=== PATIENT | male | born 1990 | race Caucasian/White ===

== ENCOUNTER 2018-12-02 20:48 | Observation (INO) | payer MEDICAID, SELFPAY ==
[2018-12-02 20:50] VITALS: BP 133/73; PULSE 74; RESP 12; TEMP 36.8; O2SAT 98; BMI 23.3
[2018-12-02 21:18] VITALS: BP 116/75; PULSE 76; RESP 16; O2SAT 98
[2018-12-02 22:45] LABS: Absolute Lymphocyte Count 3.18 X10^3/ul (0.83-4.51); Absolute Neutrophil Count 5.4 X10^3/uL (2.0-7.7); Basophil# 0.02 X10^3/uL; Basophil% 0.2 % (0-1); Eosinophil# 0.07 X10^3/uL; Eosinophils% 0.7 % (0-5); Hemoglobin 12.2 g/dl (13.0-16.5); Lymphocyte # 3.18 X10^3/ul (4.0); Lymphocyte % 33.4 % (19-41); Mean Corp Hgb Conc 33.9 g/gl (32-36); Mean Corpuscular Volume 88.5 fL (80-94); Mean Platelet Vol. 8.7 fl (6.2-12.0); Monocyte# 0.81 X10^3/uL; Monocyte% 8.5 % (0-10); Neutrophil # 5.42 X10^3/uL (2.7-7.7); Neutrophil % 57.1 % (47-70); Platelet Count 367 K/mm3 (150-450); RBC Distribution Width CV 13.6 % (11.6-14.6); RBC Distribution Width SD 44.3 fl (35.1-43.9); Red Blood Count 4.07 M/mm3 (4.6-6.2); White Blood Count 9.5 K/mm3 (4.4-11.0)
[2018-12-02 22:50] LABS: POSITIVE COUNT NO; POSITIVE DIFFERENTIAL NO; POSITIVE MORPHOLOGY NO
[2018-12-02] MEDS: Ondansetron 4 MG/2 ML Vial IV (22:55)
[2018-12-02] MEDS: Ketorolac 30 MG/ML Syringe IV (22:56)
[2018-12-02 23:02] LABS: AST(SGOT) 15 U/L (15-37); Alanine Aminotransfer ALT/SGPT 21 U/L (16-61); Albumin, Serum 3.5 g/dL (3.2-5.0); Alkaline Phosphatase 117 U/L (45-117); Anion Gap 4 (5-15); BUN 18 mg/dL (7-18); Bilirubin, Direct < 0.05 mg/dL (0.00-0.30); Calcium,Total 8.6 mg/dL (8.5-10.1); Chloride 109 mmol/L (98-107); Creatinine, Serum 0.82 mg/dL (0.70-1.30); EST Glomerular Filtration Rate 119 mL/min (>60); Est Glom Filt Rate - Afr Amer 145 mL/min (>60); Estimated Creatinine Clearance 139.72 ml/min; Globulin 3.5 g/dL (2.2-4.2); Glucose 113 mg/dL (74-106); Potassium 3.8 mmol/L (3.5-5.1); Sodium Level 140 mmol/L (136-145)
[2018-12-02 23:12] VITALS: BP 121/77; PULSE 66; RESP 16; O2SAT 98
--- NOTE | 2018-12-02 23:57 | ED.VISSUMM ---
- ER Visit Summary Date of Service: 12/02/18 Chief Complaint: Requesting detox History of Present Illness: The patient is a 28 M who is requesting detox from both fentanyl and meth. He states he uses fentanyl daily. He shoots up and snorts the drug. His last use was yesterday. He also uses meth to a lesser degree. He is complaining of a tingling sensation over his body, nausea and vomiting, and he feels shaky. Physical Examination: Vital signs unremarkable. Patient sitting upright in bed. Head and neck examination unremarkable. Heart is regular rate and rhythm. Lung sounds are clear. Abdomen is soft nontender. Hypoactive bowel sounds are present. Patient has palpable tremor when he holds his hands upright. He has intermittent gooseflesh. Test Results: CBC was normal white count hemoglobin 12.2. Chemistry studies unremarkable. LFTs normal. EtOH is unremarkable. Urinalysis is positive for amphetamines and cannabinoids. Emergency Department Course and Treatment: Patient was given Toradol, Zofran, and IV fluids. On repeat evaluation patient is more fidgety than previous. He has goosebumps prevalent on his arms that are constant. His CINA score is currently 19. I will speak with hospitalist regarding admission. Treatment Plan: [] Disposition: Admit Impression: Opiate withdrawal This note was generated with [employer] dictation software. It may contain incorrect words, spelling, and punctuation that were not noted in review of the chart prior to signing ED Disposition - Plan for ED Patient: Referrals: Care Physician,No Primary [Primary Care Provider] -
[2018-12-03] VITALS (11 sets, daily range): BP systolic 120–129; BP diastolic 70–83; PULSE 50–81; RESP 16–20; TEMP 36.6–37; O2SAT 97–100; BMI 23.3
[2018-12-03] MEDS: 0.9% Normal Saline 1,000 ML 150 ML IV (00:03)
[2018-12-03 00:22] LABS: Amphetamine Urine VISTA POSITIVE (<1000 ng/mL); Barbiturate Urine VISTA NEGATIVE (< 200 ng/mL); Benzodiazepine Urine VISTA NEGATIVE (< 200 ng/mL); Cocaine Urine VISTA NEGATIVE (< 300 ng/mL); Ecstacy Urine VISTA NEGATIVE (< 500 ng/mL); Methadone Urine VISTA NEGATIVE (< 300 ng/mL); PCP Urine VISTA NEGATIVE (< 25 ng/mL); THC Urine VISTA POSITIVE (< 50 ng/mL); Vista UDS pH Range 6
--- NOTE | 2018-12-03 01:02 | PCM.HP.STD ---
Problem List (1) Polysubstance (including opioids) dependence with physiological dependence Status: Acute (2) Tobacco abuse Status: Acute History of Present Illness Date of Admission: 12/03/18 Chief Complaint: drug withdrawal symptoms The patient is a 28 year old M with a significant use of polysubstance dependence who presented with drug withdrawal symptoms that started a day before presentation. Patient drug of choice is fentanyl. He snorts and also shoots from fentanyl. He reports that he uses a lot. Also he uses methamphetamine. He snorts and also shoot methamphetamine. He last use fentanyl 2 days ago. He reported he does not use very much of methamphetamine. He denies ever being in any withdrawal program. Also he uses marijuana. He describes his withdrawal symptoms as vomiting; diarrhea; restless leg; nausea; dry mouth; generalized pain; shakiness; and restlessness. He reported that he is homeless. Past Medical History Medical History: Medical History (Last Updated 12/03/18 @ 02:34 by Chuck Cruz MD) Polysubstance dependence F19.20 Allergies No Known Allergies Allergy (Verified 12/02/18 20:49) Home Medications: Ambulatory Orders Medication Instructions Recorded NK 12/02/18 Surgical History: - - Left knee ACL surgery Lives: Homeless Smoking Status: Current every day smoker Tobacco Use: Cigarettes Alcohol: None Drugs: Marijuana - *Family History Maternal History Items: Hypertension, - - Ethanol abuse; marijuana abuse; and prediabetes Paternal History Items: Hypertension, - - Rheumatoid arthritis Review of Systems Constitutional: Denies: Chills, Fever, Weight Change HEENT: Reports: Sinus Drainage Cardiovascular: Denies: Chest Pain, Palpitations Respiratory: Denies: Cough, Shortness of breath at rest, Sputum production Gastrointestinal: Reports: Diarrhea, Nausea, Vomiting. Denies: Abdominal Pain Genitourinary: Denies: Dysuria Musculoskeletal: Reports: Muscle pain. Denies: Joint Pain, Joint Tenderness Skin: Denies: Rash, Wounds Neurological: Denies: Numbness, Tingling, Focal weakness Psychiatric: Denies: Anxiety, Depression, Homicidal Ideations, Suicidal Ideations Hematologic/ Lymphatic: Denies: Easy Bruising, Easy Bleeding VTE Information - Inpt Only VTE Present on Admission: No VTE Mechan Device Prophylaxis: None Reason prophylaxis not ordered:: Treatment Not Indicated - Low risk. Patient Problems: Active and Suspected Problems (Last Updated 12/03/18 @ 02:34 by Chuck Cruz MD) Polysubstance (including opioids) dependence with physiological dependence (Acute) Tobacco abuse (Acute) - Physical Exam General: Alert, Oriented x3, Cooperative HEENT: Atraumatic, PERRLA, EOMI, Normocephalic Neck: Supple, No JVD, Negative Carotid Bruits Lungs: Clear to auscultation, Normal air movement Cardiovascular: Regular rate, No murmurs Abdomen: Bowel Sounds Present, Soft, Non Tender Extremities: No edema, Capillary Refill Less than 3 Seconds Skin: No rashes, No breakdown Musculoskeletal: No Tenderness to Palpation of Joints or Extremities Neurological: Neuro grossly intact, - - Asterixis Psych/Mental Status: Anxious Vital Signs Temp Pulse Resp BP Pulse Ox 98.3 F 66 16 121/77 H 98 12/02/18 20:50 12/02/18 23:12 12/02/18 23:12 12/02/18 23:12 12/02/18 23:12 Oxygen Delivery Method Room Air Weight: 74 kg Body Mass Index (BMI) 23.3 Laboratory Tests Past 24 Hrs 12/02/18 12/02/18 12/02/18 22:35 22:35 22:35 WBC 9.5 RBC 4.07 L Hgb 12.2 L Hct 36.0 L MCV 88.5 MCH 30.0 MCHC 33.9 RDW 13.6 RDW Differential 44.3 H Plt Count 367 MPV 8.7 Immature Gran % (Auto) 0.100 Neut % (Auto) 57.1 Lymph % (Auto) 33.4 [place] % (Auto) 8.5 Eos % (Auto) 0.7 Baso % (Auto) 0.2 Absolute Neuts (auto) 5.4 Absolute Lymphs (auto) 3.18 Total Counted Not Reportable Sodium 140 Potassium 3.8 Chloride 109 H Carbon Dioxide 27.0 Anion Gap 4 L BUN 18 Creatinine 0.82 Estim Creat Clear Calc 139.72 Est GFR (MDRD) Af Amer 145 Est GFR (MDRD) Non-Af 119 BUN/Creatinine Ratio 22.0 H Glucose 113 H Calcium 8.6 Total Bilirubin 0.20 Direct Bilirubin < 0.05 AST 15 ALT 21 Alkaline Phosphatase 117 Total Protein 7.0 Albumin 3.5 Globulin 3.5 Urine Opiates Screen Urine Methadone Screen Ur Barbiturates Screen Ur Phencyclidine Scrn Ur Amphetamines Screen U Methamphetamin-MDMA U Benzodiazepines Scrn Urine Cocaine Screen U Cannabinoids Screen Ur Drug Screen Comment Ethyl Alcohol 7.0 12/02/18 22:50 WBC RBC Hgb Hct MCV MCH MCHC RDW RDW Differential Plt Count MPV Immature Gran % (Auto) Neut % (Auto) Lymph % (Auto) [place] % (Auto) Eos % (Auto) Baso % (Auto) Absolute Neuts (auto) Absolute Lymphs (auto) Total Counted Sodium Potassium Chloride Carbon Dioxide Anion Gap BUN Creatinine Estim Creat Clear Calc Est GFR (MDRD) Af Amer Est GFR (MDRD) Non-Af BUN/Creatinine Ratio Glucose Calcium Total Bilirubin Direct Bilirubin AST ALT Alkaline Phosphatase Total Protein Albumin Globulin Urine Opiates Screen NEGATIVE Urine Methadone Screen NEGATIVE Ur Barbiturates Screen NEGATIVE Ur Phencyclidine Scrn NEGATIVE Ur Amphetamines Screen POSITIVE H U Methamphetamin-MDMA NEGATIVE U Benzodiazepines Scrn NEGATIVE Urine Cocaine Screen NEGATIVE U Cannabinoids Screen POSITIVE H Ur Drug Screen Comment Ethyl Alcohol Assessment/Plan All Active Problems (Last Updated 12/03/18 @ 02:34 by Chuck Cruz MD) Polysubstance (including opioids) dependence with physiological dependence (Acute) Tobacco abuse (Acute) The patient is a 28 year old M with a significant use of polysubstance dependence who presented with drug withdrawal symptoms. Polysubstance dependence and withdrawal Drug of choice is fentanyl. Drug use is amphetamine and marijuana. CINA score at the ED was 19. Will place patient on opiate withdrawal protocol with Subutex. Other adjunctive medications include as needed Tylenol; clonidine as needed; Bentyl as needed; Vistaril as needed; methocarbamol as needed; Zofran as needed and Mirapex as needed. Patient was counseled [facility] consult Case management consult for homelessness. Tobacco abuse Smokes about 1 1/2 pack/day. Counseled Nicotine patch ordered. DVT prophylaxis Low risk Encouraged to ambulate. Code Visit Inpatient E&M: 99420 Init Hosp L3
[2018-12-03] MEDS: Methocarbamol 750 MG Tablet PO ×3 (02:58→18:08)
[2018-12-03] MEDS: Dicyclomine 10 MG Capsule 20 MG PO ×3 (02:58→18:08)
[2018-12-03] MEDS: cloNIDine HCl 0.1 MG Tablet PO ×3 (02:58→18:08)
[2018-12-03] MEDS: Buprenorphine HCl 2 MG TAB.SUBL SL ×3 (02:59→18:08)
[2018-12-03] MEDS: Pramipexole Di-HCl 0.25 MG Tablet PO ×2 (09:41→22:06)
--- NOTE | 2018-12-03 11:33 | NEWVISION ---
Peter Odonnell was requested to see patient who was admitted for opiate withdrawal. Patient uses opiates and has [facility] medicaid and peter odonnell is unable to accpet this insurance with opiate only as drug of choice. Relayed information to Elizabeth COATES. Patient is open to outpatient options. Patient states he will be staying with his brother after he is discharged.
--- NOTE | 2018-12-03 13:14 | CASEMGMT ---
Pt had indicated to [facility] he is too tired to discuss treatment options today. SW will follow up w/pt tomorrow. ANGELY Jauregui, SOAKING PIT OPERATOR
[2018-12-03] MEDS: Acetaminophen 325 MG Tablet 650 MG PO ×2 (14:10→22:06)
[2018-12-03] MEDS: hydrOXYzine PAM 25 MG Capsule 50 MG PO ×2 (14:10→22:06)
--- NOTE | 2018-12-03 15:20 | CHAPLAIN ---
Type of Pastoral Visit _x__ Initial Visit ___ Follow-up Visit ___ On-call Visit ___ General Patient Visit ___ Spiritual Assessment ___ Family Conference ___ Bereavement ___ Rapid Response ___ Code Blue ___ Other (describe below) Pastoral Care Referral From _x__ Patient ___ Family ___ Nurse ___ Physician ___ Director Of Campus Recreation ___ Certified Orthotist Practice Manager ___ Other (describe below) Sacrament/Intervention ___ Active listening ___ Anointing ___ Mu-Ism ___ Bereavement ___ Communion ___ Manuela exploration ___ ___ Life review ___ Prayer ___ Reconciliation ___ Sacrament of Sick _x__ Supportive presence ___ Wedding ___ Other (describe below) Pastoral Comments patient was on phone when entered room; RN soon came into room; pt said he is ok but not ok and said that he was glad for support; pt said that he has family support from mother and brothers; pt said this is his first time in detox; pt not very talkative at this time but welcomes another visit tomorrow
[2018-12-04] VITALS (9 sets, daily range): BP systolic 106–128; BP diastolic 69–94; PULSE 50–74; RESP 14–18; TEMP 36.3–37; O2SAT 99–100
[2018-12-04] MEDS: Dicyclomine 10 MG Capsule 20 MG PO ×2 (00:05→15:09)
[2018-12-04] MEDS: Methocarbamol 750 MG Tablet PO ×4 (00:05→21:37)
[2018-12-04] MEDS: Buprenorphine HCl 2 MG TAB.SUBL SL ×3 (02:12→17:52)
--- NOTE | 2018-12-04 09:10 | PCM.PN.HOSP ---
Patient Problems: Active and Suspected Problems (Last Updated 12/03/18 @ 02:34 by Chuck Cruz MD) Polysubstance (including opioids) dependence with physiological dependence (Acute) Tobacco abuse (Acute) Subjective: Doing well, no issues overnight. Sleeping this morning when I came in. Vitals/I&O's: Vital Signs Temp Pulse Resp BP Pulse Ox 98.5 F 55 L 15 122/70 H 99 12/04/18 06:44 12/04/18 06:44 12/04/18 06:44 12/04/18 06:44 12/03/18 18:06 Oxygen Delivery Method Room Air Weight: 162 lb 11.218 oz Body Mass Index (BMI) 23.3 Intake and Output for Last 24 Hours 12/02/18 12/03/18 12/04/18 23:59 23:59 23:59 Intake Total 1240 / 1240 870 / 870 Balance 1240 / 1240 870 / 870 General: Alert, Oriented x3, Cooperative, No apparent distress HEENT: Atraumatic, PERRLA, EOMI Oral: Moist Mucosa Neck: Supple, No JVD, Trachea Midline Lungs: Clear to auscultation, Normal air movement, No rhonchi, No wheeze, No rales Cardiovascular: Regular rate, Regular Rhythm, Normal S1, Normal S2, No murmurs Abdomen: Soft, Non Tender, Non-Distended, No Hepato-splenomegaly Extremities: No edema, Capillary Refill Less than 3 Seconds Skin: No rashes, No breakdown Neurological: Neuro grossly intact, Sensory exam intact to light touch and pain Psych/Mental Status: Normal Affect, Appropriate Current Medications Acetaminophen (Tylenol) 650 mg PO Q6H PRN PRN PRN Reason: Mild Pain (1-3)/Temp > 100.7 F Last Admin: 12/03/18 22:06 Dose: 650 mg Buprenorphine HCl (Buprenorphine Hcl) 2 mg SL Q8H PER; Taper Stop: 12/06/18 06:14 Last Admin: 12/04/18 02:12 Dose: 2 mg Clonidine (Catapres) 0.1 mg PO Q2H PRN PRN PRN Reason: Hot/Cold Sweats or Anxiety Last Admin: 12/03/18 18:08 Dose: 0.1 mg Dicyclomine HCl (Bentyl) 20 mg PO Q6H PRN PRN PRN Reason: Abdomnial Discomfort Last Admin: 12/04/18 00:05 Dose: 20 mg Hydroxyzine HCl (Vistaril Vial) 50 mg IM Q6H PRN PRN PRN Reason: Breakthrough Anxiety Hydroxyzine Pamoate (Vistaril Pamoate Capsule) 50 mg PO Q6H PRN PRN PRN Reason: Mild Anxiety Last Admin: 12/03/18 22:06 Dose: 50 mg Methocarbamol (Methocarbamol) 750 mg PO Q6H PRN PRN PRN Reason: Muscle Aches Last Admin: 12/04/18 06:46 Dose: 750 mg Nicotine (Nicoderm Cq (Pbkc)) 21 mg TRANSDERM. DAILY PER Last Admin: 12/03/18 09:35 Dose: 21 mg Nutritional Formula (Lactose Free) (Ensure Enlive) 120 ml PO 4X/DAY PER Last Admin: 12/03/18 22:07 Dose: 120 ml Ondansetron HCl (Zofran) 4 mg IV Q8H PRN PRN PRN Reason: NAUSEA Pramipexole Dihydrochloride (Mirapex) 0.25 mg PO Q12H PRN PRN PRN Reason: Restless Legs Last Admin: 12/03/18 22:06 Dose: 0.25 mg Sodium Chloride () 5 - 15 ml IV UD PRN PRN Reason: SALINE FLUSH Medical Necessity - Tobacco Use Smoking Status: Current every day smoker Tobacco Use: Cigarettes Assessment/Plan All Active Problems (Last Updated 12/03/18 @ 02:34 by Chuck Cruz MD) Polysubstance (including opioids) dependence with physiological dependence (Acute) Tobacco abuse (Acute) 1. Polysubstance abuse -CINA of 19 in the ER -Uses fentanyl as well as amphetamines and marijuana -Continue with the [facility] opiate withdrawal protocol 2. Tobacco use -Counseled on cessation -Continue with nicotine patch DVT: Ambulation Code Visit Inpatient E&M: 04414 Subs Hosp L2
[2018-12-04] MEDS: cloNIDine HCl 0.1 MG Tablet PO ×3 (09:47→17:51)
[2018-12-04] MEDS: hydrOXYzine PAM 25 MG Capsule 50 MG PO ×2 (09:47→17:51)
[2018-12-04] MEDS: Acetaminophen 325 MG Tablet 650 MG PO ×2 (09:47→17:52)
--- NOTE | 2018-12-04 10:05 | CASEMGMT ---
Social Work Note Date and Time of Referral: 12/03/18 at 1:15pm Referred by: Chacho Lewis Date and Time of Intervention: 12/04/18 at 10:00am Reason for referral: Resources for outpt addiction services Informant: patient Personal Status: Living arrangements: Pt will stay w/his brother at discharge Employment: Pt states was working but is going to quit to focus on sobriety Insurance: [facility] Community Plan Family Dynamics/support system: Pt did not elaborate but states family is supportive including his mom and brothers Medical History and Functioning: Reason for admission and relevant medical history: Polysubstance abuse and nicotine use ADL's/DME: Pt fully independent, access to transportation Programs/Agencies involved: None other than [employer] for insurance Substance Abuse History/Treatment: Pt states uses fentanyl, amphetamines, marijuana, and uses tobacco. Pt denies using any other substances. Pt states has used for 1.5 years, has never been in treatment. Mental Health history: Pt denies any mental health history or diagnoses. Current Cognitive/Mental Status: Pt alert and oriented, polite. Pt did not elaborate on questions asked but did answer all questions appropriately. Pt's Identified Concerns: Wants to stop using and wants connected to outpt resources Interventions: SW spoke w/pt about [facility], pt agreeable to SW calling to make appt. [facility] called, pt can go in for open intake any time M-F from 8am to 3pm. SW let pt know this and gave pt information on . JAXON encouraged pt to go tomorrow if he is discharged, otherwise to go as soon as he gets up on Saturday. Pt also does not have a PCP so [facility]ON gave pt a list of PCP's that take pt's insurance near where his brother lives. Pt also does not have a pharmacy that he regularly uses. JAXON told pt to just let RN know when he is discharged if he would like scripts sent to a particular pharmacy, should he have any meds prescribed. Plan: Pt to follow up w/[facility] at discharge. ANGELY Jauregui, HI RANGER OPERATOR
--- NOTE | 2018-12-04 14:08 | CASEMGMT ---
JAXON received a call from [facility] in [facility]([phone], fax [phone]). Maryse states that pt's mother called and had said that pt was interested in this program. They have both a 7 day detox and a 21 day program. JAXON explained will need to speak w/pt to see if he is interested and if so will send the referral. SW spoke w/pt in regard to [facility]. Pt has not spoken w/his mom in regard to going to this program, but is agreeable to referral being sent. Pt signed consent to release records. JAXON faxed consent with clinical information to [place]. JAXON called Maryse and let her know that the referral has been sent and pt will likely be ready for discharge tomorrow or Saturday. Maryse states that given that pt has been here only for two days, pt would need to go into the detox program. JAXON asked Maryse to call this SW back. JAXON will continue to follow. ANGELY Jauregui, SQL ETL DEVELOPER
[2018-12-04] MEDS: Pramipexole Di-HCl 0.25 MG Tablet PO (17:51)
[2018-12-05] MEDS: Methocarbamol 750 MG Tablet PO (05:24)
[2018-12-05] MEDS: hydrOXYzine PAM 25 MG Capsule 50 MG PO (05:24)
[2018-12-05] MEDS: Buprenorphine HCl 2 MG TAB.SUBL SL (05:24)
[2018-12-05 05:26] VITALS: BP 106/66; PULSE 58; RESP 16; TEMP 36.4
[2018-12-05 07:37] VITALS: O2SAT 97
--- NOTE | 2018-12-05 09:12 | PCM.PN.HOSP ---
Patient Problems: Active and Suspected Problems (Last Updated 12/03/18 @ 02:34 by Chuck Cruz MD) Polysubstance (including opioids) dependence with physiological dependence (Acute) Tobacco abuse (Acute) Subjective: Doing well, no acute events overnight Vitals/I&O's: Vital Signs Temp Pulse Resp BP Pulse Ox 97.5 F L 58 L 16 106/66 97 12/05/18 05:26 12/05/18 05:26 12/05/18 05:26 12/05/18 05:26 12/05/18 07:37 Oxygen Delivery Method Room Air Weight: 162 lb 11.218 oz Body Mass Index (BMI) 23.3 Intake and Output for Last 24 Hours 12/03/18 12/04/18 12/05/18 23:59 23:59 23:59 Intake Total 1240 / 1240 2180 / 2180 600 / 600 Balance 1240 / 1240 2180 / 2180 600 / 600 General: Alert, Oriented x3, Cooperative, No apparent distress HEENT: Atraumatic, PERRLA, EOMI Oral: Moist Mucosa Neck: Supple, No JVD, Trachea Midline Lungs: Clear to auscultation, Normal air movement, No rhonchi, No wheeze, No rales Cardiovascular: Regular rate, Regular Rhythm, Normal S1, Normal S2, No murmurs Abdomen: Soft, Non Tender, Non-Distended, No Hepato-splenomegaly Extremities: No edema, Capillary Refill Less than 3 Seconds Skin: No rashes, No breakdown Neurological: Neuro grossly intact, Sensory exam intact to light touch and pain Psych/Mental Status: Normal Affect, Appropriate Current Medications Acetaminophen (Tylenol) 650 mg PO Q6H PRN PRN PRN Reason: Mild Pain (1-3)/Temp > 100.7 F Last Admin: 12/04/18 17:52 Dose: 650 mg Buprenorphine HCl (Buprenorphine Hcl) 2 mg SL Q12H PER; Taper Stop: 12/06/18 06:14 Last Admin: 12/05/18 05:24 Dose: 2 mg Clonidine (Catapres) 0.1 mg PO Q2H PRN PRN PRN Reason: Hot/Cold Sweats or Anxiety Last Admin: 12/04/18 17:51 Dose: 0.1 mg Dicyclomine HCl (Bentyl) 20 mg PO Q6H PRN PRN PRN Reason: Abdomnial Discomfort Last Admin: 12/04/18 15:09 Dose: 20 mg Hydroxyzine HCl (Vistaril Vial) 50 mg IM Q6H PRN PRN PRN Reason: Breakthrough Anxiety Hydroxyzine Pamoate (Vistaril Pamoate Capsule) 50 mg PO Q6H PRN PRN PRN Reason: Mild Anxiety Last Admin: 12/05/18 05:24 Dose: 50 mg Methocarbamol (Methocarbamol) 750 mg PO Q6H PRN PRN PRN Reason: Muscle Aches Last Admin: 12/05/18 05:24 Dose: 750 mg Nicotine (Nicoderm Cq (Pbkc)) 21 mg TRANSDERM. DAILY PER Last Admin: 12/04/18 09:41 Dose: 21 mg Nutritional Formula (Lactose Free) (Ensure Enlive) 120 ml PO 4X/DAY PER Last Admin: 12/04/18 21:37 Dose: 120 ml Ondansetron HCl (Zofran) 4 mg IV Q8H PRN PRN PRN Reason: NAUSEA Pramipexole Dihydrochloride (Mirapex) 0.25 mg PO Q12H PRN PRN PRN Reason: Restless Legs Last Admin: 12/04/18 17:51 Dose: 0.25 mg Sodium Chloride () 5 - 15 ml IV UD PRN PRN Reason: SALINE FLUSH Medical Necessity - Tobacco Use Smoking Status: Current every day smoker Tobacco Use: Cigarettes Assessment/Plan All Active Problems (Last Updated 12/03/18 @ 02:34 by Chuck Cruz MD) Polysubstance (including opioids) dependence with physiological dependence (Acute) Tobacco abuse (Acute) 1. Polysubstance abuse -CINA of 19 in the ER -Uses fentanyl as well as amphetamines and marijuana -Continue with the [facility] opiate withdrawal protocol 2. Tobacco use -Counseled on cessation -Continue with nicotine patch DVT: Ambulation Code Visit Inpatient E&M: 87170 Subs Hosp L2
[2018-12-05] MEDS: Acetaminophen 325 MG Tablet 650 MG PO (09:15)
[2018-12-05 10:00] VITALS: BP 117/71; PULSE 74; RESP 18; TEMP 36.9
--- NOTE | 2018-12-05 10:03 | CASEMGMT ---
Addendum entered by Elizabeth Trivedi 12/05/18 14:36: [facility] would still have a bed in their residential program Saturday, but they have no beds no in the detox program. [facility] may not be able to find transport for pt. Pt would need to be to by 7:30pm at the latest. SW spoke w/pt, is trying to get a hold of his family to see if they can take him today, and get him there before 7:30pm. ANGELY Jauregui, LUMBER STACKER Original Note: Addendum entered by Elizabeth Trivedi 12/05/18 13:52: Jean Paul from [facility] called this SW back, they have no bed availability. Dr. Trevino would be fine w/pt discharging today and can e-scribe Clonidine and Vistaril to [facility]. SW spoke w/pt, explained this, he is agreeable to go today, his mom can bring him but not until this evening. JAXON called William back from , explained the physician can discharge pt today and e-scribe the Clonidine and Vistaril. JAXON explained that pt's mother can get pt there about 8pm. William states this is too late and will have their director of home economics call SW directly to see if there is another way to do this. SW spoke w/pt, he would be willing to go via transportation through insurance to the program. JAXON called [facility] to set up transport, ([phone]), someone will be picking pt up from 2:30-5:30pm, just waiting for confirmation on when. JAXON called back, message left for William to call this SW back. SW will let physician know as soon as this SW knows if we can get pt to the program in time for him to go today. Otherwise, pt also said is agreeable to go home w/his family and feels he can stay sober over the weekend now, and can go to [facility] Saturday--if they still have a bed on Saturday. SW will continue to follow. ANGELY Jauregui, LUMBER STACKER Original Note: Addendum entered by Elizabeth Trivedi 12/05/18 13:20: SW spoke zaheer/William at , they can take pt today. SW spoke w/pt, he is agreeable to go however states the physician was keeping him until the morning. SW texted physician to inquire when pt is to be discharged. SW called back, they are stating they would like to take pt today, there is no guarantee of a bed tomorrow, and asked if pt can be sent with a week long script for baclofin, clonadine, and visteral. SW texted physician to inquire if he would be willing to do this. SW waiting for a call back from the physician. He can prescribe the meds directly to [facility]. SW will let physician know when he calls back. ANGELY Jauregui, LUMBER STACKER Original Note: Addendum entered by Elizabeth Trivedi 12/05/18 12:23: SW spoke w/[facility], someone to review pt's information and call this SW back. SW called [facility], they only take pts for residential of court ordered. [facility] as she had not yet had a chance to review the information sent. ANGELY Jauregui, LUMBER STACKER Original Note: Addendum entered by Elizabeth Trivedi 12/05/18 10:58: SW received a call back from [facility] [place], they are a longer term program and do not go through Medicaid. SW called [facility] in [place], they have beds and take pt's insurance. Referral faxed. ANGELY Jauregui, LUMBER STACKER Original Note: SW received message from [facility], Maryse states the could take pt but not until Saturday, pt would need to stay sober over the weekend. SW spoke w/pt in room, let him know that [facility] can take pt on Saturday, but he would need to stay sober over the weekend. Pt is concerned about staying sober and asked about other options. SW did have pt sign a release. SW asked pt about a longer term program, 6-9 months, pt states he does not need a program that long. SW explained will make some phone calls and see if we can find a place that can take him today. SW called the following places, and none are appropriate for the reasons listed: [facility]: only do detox for inpt at [facility], they do not have a 21-28 day program [facility]: do not take Medicaid for inpt [facility]: no beds [facility]: 9 month program, pt does not want this [facility]: 7 day wait list [facility]: Only take [facility] residents for inpt [facility]: No beds Messages left for [facility], [facility], [facility], [facility]. JAXON called [facility], asked Maryse if there is any chance of a bed today. She states there is not. She states they can take pt on Saturday, and if pt is not able to stay sober they would start the pt in their detox program first, then he would go to the 21 day program. JAXON called [facility] to inquire about other options, message left. JAXON will wait to see if any of the facilities where messages have been left call back. ANGELY Jauregui, LUMBER STACKER
[2018-12-05 14:00] VITALS: BP 125/84; PULSE 83; RESP 18; TEMP 36.9
--- NOTE | 2018-12-05 14:45 | CASEMGMT ---
Navi from [facility] transport called back, the company [employer] can case picker pt between 4-4:30pm([phone]). SW let pt know of time, RN know of time of pickup, pt agreeable. SW gave pt and RN this information. Pt's mother just arrived however and states she can take pt. SW gave pt's mother the information for the program, number and address. SW called [facility] transport, canceled the trip. JAXON also called Maryse at [facility] to let her know pt will not be coming to her program, message left. SW let physician know, he will discharge pt. ANGELY Jauregui, SECURITY GUARD DISPATCHER
--- NOTE | 2018-12-05 15:06 | DCINST_ITS ---
- Discharge Diagnoses Current Active Problems: Current Active and Chronic Problems (Last Updated 12/03/18 @ 02:34 by Chuck Cruz MD) Polysubstance (including opioids) dependence with physiological dependence (Acute) Tobacco abuse (Acute) You will use the following diet at home:: Regular Your food should be the consistency of: Regular Your liquids should be the consistency of: Regular/Thin Discharge Activity: Return to Normal Activity Call your doctor if you observe: Fever of 101 or Higher, Dizziness, Fainting spells, Swelling in the ankles, Chest pain, Increased palpitations (irregular heartbeat) Allergies/Adverse Reactions: Allergies No Known Allergies Allergy (Verified 12/02/18 20:49) Medications to take at Discharge Clonidine HCl [Catapres] 0.1 mg PO Q2H PRN PRN #15 tablet 12/05/18 Dicyclomine HCl [Bentyl] 20 mg PO Q6H PRN PRN #20 capsule 12/05/18 Methocarbamol 750 mg PO Q6H PRN PRN #15 tablet 12/05/18 Nicotine [Nicoderm Cq] 21 mg TRANSDERM. DAILY #30 patch 12/05/18 Pramipexole Di-HCl [Mirapex] 0.25 mg PO Q12H PRN PRN #10 tablet 12/05/18 hydrOXYzine pamoate capsule [Vistaril pamoate capsule] 50 mg PO Q6H PRN PRN #20 capsule 12/05/18 The following prescriptions were given: Clonidine HCl [Catapres] 0.1 mg PO Q2H PRN PRN #15 tablet PRN Reason: Hot/Cold Sweats or Anxiety Dicyclomine HCl [Bentyl] 20 mg PO Q6H PRN PRN #20 capsule PRN Reason: Abdomnial Discomfort hydrOXYzine pamoate capsule [Vistaril pamoate capsule] 50 mg PO Q6H PRN PRN #20 capsule PRN Reason: Mild Anxiety Methocarbamol 750 mg PO Q6H PRN PRN #15 tablet PRN Reason: Muscle Aches Pramipexole Di-HCl [Mirapex] 0.25 mg PO Q12H PRN PRN #10 tablet PRN Reason: Restless Legs Nicotine [Nicoderm Cq] 21 mg TRANSDERM. DAILY #30 patch Primary Care Physician: Care Physician,No Primary [Primary Care Provider] - Please follow up with your Primary Care Physician in: 3-5 days Test Results: Test results from this visit will be discussed in further detail at your follow- up appointment, if applicable.
[2018-12-05 15:23] VITALS: BP 125/84; PULSE 83; RESP 18; TEMP 36.9; O2SAT 98
--- NOTE | 2018-12-05 15:41 | DS.PCM_ITS ---
Discharge Date and Diagnosis - Problem List Patient Problems: Active and Suspected Problems (Last Updated 12/03/18 @ 02:34 by Chuck Cruz MD) Polysubstance (including opioids) dependence with physiological dependence (Acute) Tobacco abuse (Acute) Date of Admission: 12/03/18 Date of Discharge: 12/05/18 - Primary Discharge Diagnosis Active and Suspected Problems (Last Updated 12/03/18 @ 02:34 by Chuck Cruz MD) Polysubstance (including opioids) dependence with physiological dependence (Acute) Tobacco abuse (Acute) Hospital Course and Treatment Imaging Results: None Consultations 12/03/18 02:28 Consult: [place] Routine Consulting Provider: Consulted Physician Type:: Other * Specify below * Reason for consult:: Substance withdrawal Operations: None Procedures: None Summary of Care Provided: Per HPI: The patient is a 28 year old M with a significant use of polysubstance dependence who presented with drug withdrawal symptoms that started a day before presentation. Patient drug of choice is fentanyl. He snorts and also shoots from fentanyl. He reports that he uses a lot. Also he uses methamphetamine. He snorts and also shoot methamphetamine. He last use fentanyl 2 days ago. He reported he does not use very much of methamphetamine. He denies ever being in any withdrawal program. Also he uses marijuana. He describes his withdrawal symptoms as vomiting; diarrhea; restless leg; nausea; dry mouth; generalized pain; shakiness; and restlessness. He reported that he is homeless. Hospital Course: 1. Polysubstance abuse/tobacco [id number] male with recent use of fentanyl as well as amphetamines and marijuana presented to the ER with withdrawal. On admission he had a CINA of 19. He was doing well on the [employer] opiate withdrawal protocol and was planning on going to another inpatient rehab unit on discharge. He was set up to go possibly to 1 on Saturday however he was afraid that he was discharged on Saturday he might fall back into using drugs prior to going to the rehab facility. We were able to get him into an inpatient rehab unit today and therefore he was discharged to that unit. His mother is the one who picked him up. He was discharged with prescriptions for symptomatic relief, but not with buprenorphine. Have also counseled him on quitting smoking, however will provide him with a nicotine patch to go to rehab with. Patient Problems: Active and Suspected Problems (Last Updated 12/03/18 @ 02:34 by Chuck Cruz MD) Polysubstance (including opioids) dependence with physiological dependence (Acute) Tobacco abuse (Acute) - Physical Exam Vital Signs Temp Pulse Resp BP Pulse Ox 98.4 F 83 18 125/84 H 98 12/05/18 15:23 12/05/18 15:23 12/05/18 15:23 12/05/18 15:23 12/05/18 15:23 Oxygen Delivery Method Room Air Weight: 162 lb 11.218 oz Body Mass Index (BMI) 23.3 Intake and Output for Last 24 Hours 12/03/18 12/04/18 12/05/18 23:59 23:59 23:59 Intake Total 1240 / 1240 2180 / 2180 1300 / 1300 Balance 1240 / 1240 2180 / 2180 1300 / 1300 Discharge Activity: Return to Normal Activity Call your doctor if you observe: Fever of 101 or Higher, Dizziness, Fainting spells, Swelling in the ankles, Chest pain, Increased palpitations (irregular heartbeat) Home Medications: Medications to take at Discharge Clonidine HCl [Catapres] 0.1 mg PO Q2H PRN PRN #15 tablet 12/05/18 Dicyclomine HCl [Bentyl] 20 mg PO Q6H PRN PRN #20 capsule 12/05/18 Methocarbamol 750 mg PO Q6H PRN PRN #15 tablet 12/05/18 Nicotine [Nicoderm Cq] 21 mg TRANSDERM. DAILY #30 patch 12/05/18 Pramipexole Di-HCl [Mirapex] 0.25 mg PO Q12H PRN PRN #10 tablet 12/05/18 hydrOXYzine pamoate capsule [Vistaril pamoate capsule] 50 mg PO Q6H PRN PRN #20 capsule 12/05/18 Following Prescrptions Were Given to Patient: Clonidine HCl [Catapres] 0.1 mg PO Q2H PRN PRN #15 tablet PRN Reason: Hot/Cold Sweats or Anxiety Dicyclomine HCl [Bentyl] 20 mg PO Q6H PRN PRN #20 capsule PRN Reason: Abdomnial Discomfort hydrOXYzine pamoate capsule [Vistaril pamoate capsule] 50 mg PO Q6H PRN PRN #20 capsule PRN Reason: Mild Anxiety Methocarbamol 750 mg PO Q6H PRN PRN #15 tablet PRN Reason: Muscle Aches Pramipexole Di-HCl [Mirapex] 0.25 mg PO Q12H PRN PRN #10 tablet PRN Reason: Restless Legs Nicotine [Nicoderm Cq] 21 mg TRANSDERM. DAILY #30 patch Primary Care Physician: Care Physician,No Primary [Primary Care Provider] - Please follow up with your Primary Care Physician in: 3-5 days Disposition: Inpatient drug rehab unit Minutes spent on discharge:: 35 Patient Condition:: Good Medical Necessity - Tobacco Use Smoking Status: Current every day smoker Tobacco Use: Cigarettes Meaningful Use Info Meaningful Use Diagnoses (Choose all that apply): None applicable Code Visit Inpatient E&M: 89049 Disch Hosp
== END 2018-12-05 16:25 | disposition home or self-care (01) | DRG 773 ==
LOC: ED 22:07 → MS2 12-03 01:50
PROVIDERS: Admitting Provider Hospitalist; Emergency Provider Emergency Medicine; Referring Provider Hospitalist; Visit Provider Family Medicine
DX: F11.23 Opioid dependence with withdrawal (principal); F17.210 Nicotine dependence, cigarettes, uncomplicated; F19.20 Other psychoactive substance dependence, uncomplicated; Z59.0 Homelessness; G25.81 Restless legs syndrome; F12.10 Cannabis abuse, uncomplicated
CPT/HCPCS: 80048; 80076; 80307; 80320; 85025; 96361; 96374; 97802; 99218; 99282; J7030; J7040; A4216; G0378; G0480; J2405